=== PATIENT | female | born 1980 | race Caucasian/White ===

== ENCOUNTER → 2022-01-14 | Outpatient (CLI) | payer OTHER | LOC: M WHC 08:54 | PROVIDERS: ATTEND Obstetrics & Gynecology | DX: N63.21 Unspecified lump in the left breast, upper outer quadrant (principal) | CPT/HCPCS: 76642; 77065; G0279 ==

== ENCOUNTER 2022-02-05 10:18 | Emergency (ER) | payer OTHER ==
[~2022-02-05] VITALS: Ht 160 cm; Wt 117.3 kg
[2022-02-05 11:18] LABS: HEMATOCRIT 41.4 % (36.0-47.0); HEMOGLOBIN 14.1 g/dl (12.0-15.5); MEAN CORPUSCULAR HGB CONC 34.1 g/dl (32.0-36.5); MEAN CORPUSCULAR VOLUME 88.1 fl (80.0-96.0); PLATELET COUNT, AUTOMATED 383 10^3/uL (150-450); WHITE BLOOD COUNT 7.8 10^3/uL (4.0-10.0)
[2022-02-05] MEDS ORDERED: NS 500 ML IV ONE (11:20)
[2022-02-05 12:03] LABS: BLOOD UREA NITROGEN 11 MG/DL (7-18); CALCIUM LEVEL 9.1 MG/DL (8.5-10.1); CARBON DIOXIDE LEVEL 24 MEQ/L (21-32); CHLORIDE LEVEL 107 MEQ/L (98-107); CREATININE FOR GFR 0.69 MG/DL (0.55-1.30); GLOMERULAR FILTRATION RATE > 60.0 (>58); GLUCOSE, FASTING 118 MG/DL (70-100); POTASSIUM SERUM 3.5 MEQ/L (3.5-5.1); SODIUM LEVEL 137 MEQ/L (136-145)
[2022-02-05 12:04] LABS: ALBUMIN 3.9 GM/DL (3.2-5.2); ALT/SGPT 27 U/L (12-78); BILIRUBIN,TOTAL 0.9 MG/DL (0.2-1.0); FREE THYROXINE INDEX 4.3 % (1.3-4.8); T UPTAKE 34 % (30-39); THYROXINE (T4) 12.7 UG/DL (4.5-12.0); TOTAL PROTEIN 7.3 GM/DL (6.4-8.2)
[2022-02-05 12:30] VITALS: BP 134/84
== END 2022-02-05 13:21 | disposition home or self-care (01) ==
LOC: M ED 10:18
DX: R00.0 Tachycardia, unspecified (principal)

== ENCOUNTER → 2022-02-06 | Outpatient (CLI) | payer OTHER ==
[2022-02-06 14:20] LABS: HEMOGLOBIN A1c 5.1 %
[2022-02-06 15:14] LABS: CHOLESTEROL RISK RATIO 3.957 (<5)
== END ==
LOC: M PLALAB 10:08
PROVIDERS: ATTEND Student in an Organized Health Care Education/Training Program
DX: R73.01 Impaired fasting glucose (principal); E66.01 Morbid (severe) obesity due to excess calories

== ENCOUNTER → 2022-02-13 | Outpatient (CLI) | payer OTHER ==
[2022-02-13 16:05] LABS: BLOOD UREA NITROGEN 10 MG/DL (7-18); CALCIUM LEVEL 9.6 MG/DL (8.5-10.1); CARBON DIOXIDE LEVEL 29 MEQ/L (21-32); CHLORIDE LEVEL 107 MEQ/L (98-107); CREATININE FOR GFR 0.71 MG/DL (0.55-1.30); GLOMERULAR FILTRATION RATE > 60.0 (>58); GLUCOSE, FASTING 105 MG/DL (70-100); POTASSIUM SERUM 4.5 MEQ/L (3.5-5.1); SODIUM LEVEL 137 MEQ/L (136-145)
== END ==
LOC: M PLALAB 11:08
PROVIDERS: ATTEND Surgery
DX: C50.912 Malignant neoplasm of unspecified site of left female breast (principal)

== ENCOUNTER → 2022-02-13 | Outpatient (CLI) | payer OTHER ==
[~2022-02-13] MED LIST: PROHANCE 279.3MG/ML 15ML VIAL As Ordered ONE; PROHANCE 279.3MG/ML 5ML VIAL As Ordered ONE
== END ==
LOC: M RAD 14:41
PROVIDERS: ATTEND Surgery
DX: Z53.9 Procedure and treatment not carried out, unspecified reason (principal)

== ENCOUNTER 2022-03-11 06:18 | Day surgery (SDC) | payer OTHER ==
[~2022-03-11] VITALS: Ht 157.5 cm; Wt 116.9 kg
[2022-03-11] MEDS ORDERED: LR 1,000 ML IV SCH ×2 (06:40→13:45)
[2022-03-11] MEDS ORDERED: ceFAZolin SOD 2 GM in IV 1 EA IV ONE (06:45)
[2022-03-11] MEDS ORDERED: HEPARIN SOD (PORCINE) 5000UNITS/ML 1ML VIAL/SYRINGE SQ ONE (07:00)
[2022-03-11] MEDS ORDERED: MIDAZOLAM INJ 2MG/2ML VIAL (J2250 PER 1MG) As Ordered ONE (08:31)
[2022-03-11] MEDS ORDERED: fentaNYL 100 MCG/2 ML INJECTION As Ordered ONE ×2 (08:31→11:29)
[2022-03-11] MEDS ORDERED: LIDOCAINE 2% 100MG/5ML SDV (FOR ANES.) As Ordered ONE (08:32)
[2022-03-11] MEDS ORDERED: LIDOCAINE 1% SDV 30ML VIAL As Ordered ONE (10:25)
[2022-03-11] MEDS ORDERED: BUPIVACAINE HCL 0.25% 30ML VIAL As Ordered ONE (10:25)
[2022-03-11] MEDS ORDERED: dexameTHASONE 4 MG/ML 1ML VIAL (J1100 PER 1MG) As Ordered ONE (10:59)
[2022-03-11] MEDS ORDERED: propofoL 200 MG/20 ML VIAL As Ordered ONE (10:59)
[2022-03-11] MEDS ORDERED: ACETAMINOPHEN 1000MG 100ML IV BTL (OFIRMEV) (J0131 PER 10MG) As Ordered ONE (11:01)
[2022-03-11] MEDS ORDERED: ONDANSETRON 4MG 2ML VIAL As Ordered ONE (13:25)
[2022-03-11] MEDS ORDERED: HYDROmorphone HCL 2MG/ML 1ML VIAL As Ordered ONE (13:26)
[2022-03-11] MEDS ORDERED: ONDANSETRON 4MG 2ML VIAL IV PRN (13:45)
[2022-03-11] MEDS ORDERED: METOCLOPRAMIDE INJ 10MG/2ML VIAL (J2765 PER 1) IV PRN (13:45)
[2022-03-11] MEDS ORDERED: fentaNYL 100 MCG/2 ML INJECTION IV PRN (13:45)
[2022-03-11] MEDS ORDERED: oxyCODONE 5MG TAB PO PRN (13:45)
[2022-03-11] MEDS ORDERED: ULTR50TA8 PO (14:25)
[2022-03-11 15:13] VITALS: BP 116/71
== END 2022-03-11 15:19 | disposition home or self-care (01) ==
LOC: M SDC 06:18
PROVIDERS: ATTEND Surgery
DX: C50.912 Malignant neoplasm of unspecified site of left female breast (principal); Z80.49 Family history of malignant neoplasm of other genital organs; N62 Hypertrophy of breast; R00.9 Unspecified abnormalities of heart beat; F41.9 Anxiety disorder, unspecified
CPT/HCPCS: 19125; 36415; 38525; 76942; 78195; 81025; 86850; 86900; 86901; 88305; 88307; A4648; A9520; J0131; J0690; J1100; J1170; J1644; J2250; J2405; J3010

== ENCOUNTER → 2022-04-09 | Outpatient (CLI) | payer OTHER ==
[~2022-04-09] MED LIST changes: -PROHANCE 279.3MG/ML 15ML VIAL As Ordered ONE; -PROHANCE 279.3MG/ML 5ML VIAL As Ordered ONE; +TAMO20TA8 PO; +ULTR50TA8 PO
== END ==
LOC: M CARPUL 08:25
PROVIDERS: ATTEND Internal Medicine Cardiovascular Disease
DX: R00.9 Unspecified abnormalities of heart beat (principal)

== ENCOUNTER → 2022-04-10 | Outpatient (CLI) | payer OTHER | LOC: M ONCR 08:37 | PROVIDERS: ATTEND General Practice | DX: C50.512 Malignant neoplasm of lower-outer quadrant of left female breast (principal); Z79.810 Long term (current) use of selective estrogen receptor modulators (SERMs); Z80.49 Family history of malignant neoplasm of other genital organs ==

== ENCOUNTER 2022-04-18 10:21 | Outpatient (RCR) | payer OTHER | END 2022-04-25 | LOC: M ONCR 10:21 | PROVIDERS: ATTEND General Practice | DX: C50.312 Malignant neoplasm of lower-inner quadrant of left female breast (principal) ==

== ENCOUNTER 2022-05-26 07:23 | Outpatient (RCR) | payer OTHER | END 2022-05-26 23:59 | disposition home or self-care (01) | LOC: M ONCR 07:23 | PROVIDERS: ATTEND General Practice | DX: C50.312 Malignant neoplasm of lower-inner quadrant of left female breast (principal) ==

== ENCOUNTER 2022-06-05 07:23 | Outpatient (RCR) | payer OTHER ==
[2022-06-17] MEDS ORDERED: TAMO20TA8 PO (11:29)
== END 2022-06-25 ==
LOC: M ONCR 07:23
PROVIDERS: ATTEND General Practice
DX: C50.312 Malignant neoplasm of lower-inner quadrant of left female breast (principal)

== ENCOUNTER → 2022-10-08 | Outpatient (CLI) | payer OTHER | LOC: M LABSMTC 08:46 | PROVIDERS: ATTEND Anesthesiology | DX: Z01.818 Encounter for other preprocedural examination (principal); Z11.52 Encounter for screening for COVID-19 ==

== ENCOUNTER 2022-10-13 09:32 | Day surgery (SDC) | payer OTHER ==
[~2022-10-13] VITALS: Ht 160 cm; Wt 114.8 kg
[~2022-10-13 09:32] MED LIST changes: +NS 1,000 ML IV ONE
[2022-10-13] MEDS ORDERED: LIDOCAINE 2% 100MG/5ML SDV (FOR ANES.) As Ordered ONE (10:54)
[2022-10-13] MEDS ORDERED: propofoL 200 MG/20 ML VIAL As Ordered ONE (10:54)
[2022-10-13 12:00] VITALS: BP 169/96
== END 2022-10-13 12:13 | disposition home or self-care (01) ==
LOC: M OPP 09:32
PROVIDERS: ATTEND Internal Medicine Gastroenterology
DX: Z12.11 Encounter for screening for malignant neoplasm of colon (principal); Z85.038 Personal history of other malignant neoplasm of large intestine; Z15.09 Genetic susceptibility to other malignant neoplasm; K63.5 Polyp of colon; Z85.3 Personal history of malignant neoplasm of breast; Z92.3 Personal history of irradiation; Z79.1 Long term (current) use of non-steroidal anti-inflammatories (NSAID); Z79.810 Long term (current) use of selective estrogen receptor modulators (SERMs)

== ENCOUNTER → 2022-12-05 | Outpatient (CLI) | payer OTHER ==
[~2022-12-05] MED LIST changes: -NS 1,000 ML IV ONE
== END ==
LOC: M ONCR 09:02
PROVIDERS: ATTEND General Practice
DX: C50.512 Malignant neoplasm of lower-outer quadrant of left female breast (principal); Z79.810 Long term (current) use of selective estrogen receptor modulators (SERMs); Z92.3 Personal history of irradiation

== ENCOUNTER → 2023-01-20 | Outpatient (CLI) | payer OTHER | LOC: M WHC 08:02 | PROVIDERS: ATTEND Nurse Practitioner Women's Health | DX: C50.912 Malignant neoplasm of unspecified site of left female breast (principal); Z12.31 Encounter for screening mammogram for malignant neoplasm of breast ==

== ENCOUNTER → 2023-06-09 | Outpatient (CLI) | payer OTHER | LOC: M ONCR 08:50 | PROVIDERS: ATTEND General Practice | DX: C50.412 Malignant neoplasm of upper-outer quadrant of left female breast (principal); L59.8 Other specified disorders of the skin and subcutaneous tissue related to radiation; Z71.2 Person consulting for explanation of examination or test findings; Z79.811 Long term (current) use of aromatase inhibitors; Z92.3 Personal history of irradiation; Z98.890 Other specified postprocedural states ==

== ENCOUNTER → 2024-01-25 | Outpatient (CLI) | payer OTHER | LOC: M WHC 13:34 | PROVIDERS: ATTEND Nurse Practitioner Women's Health | DX: C50.912 Malignant neoplasm of unspecified site of left female breast (principal) ==

== ENCOUNTER → 2024-06-09 | Outpatient (CLI) | payer OTHER | LOC: M ONCR 08:54 | PROVIDERS: ATTEND General Practice | DX: Z08 Encounter for follow-up examination after completed treatment for malignant neoplasm (principal); Z85.3 Personal history of malignant neoplasm of breast; Z79.810 Long term (current) use of selective estrogen receptor modulators (SERMs); Z98.890 Other specified postprocedural states; Z92.3 Personal history of irradiation ==

== ENCOUNTER → 2025-03-07 | Outpatient (CLI) | payer OTHER | LOC: M WHC 12:46 | DX: Z85.3 Personal history of malignant neoplasm of breast (principal); R92.313 Mammographic fatty tissue density, bilateral breasts ==

== ENCOUNTER → 2025-03-07 | Outpatient (CLI) | payer OTHER | LOC: M WHC 12:48 | PROVIDERS: ATTEND Obstetrics & Gynecology | DX: C50.912 Malignant neoplasm of unspecified site of left female breast (principal) ==

== ENCOUNTER → 2025-06-09 | Outpatient (CLI) | payer OTHER | LOC: M ONCR 08:17 | PROVIDERS: ATTEND Radiology Radiation Oncology | DX: Z08 Encounter for follow-up examination after completed treatment for malignant neoplasm (principal); Z85.3 Personal history of malignant neoplasm of breast; Z92.3 Personal history of irradiation; Z79.810 Long term (current) use of selective estrogen receptor modulators (SERMs) ==